=== PATIENT | male | born 1980 | race African-American/Black ===

== ENCOUNTER 2017-01-13 21:23 | Emergency (ER) | payer SELFPAY ==
[~2017-01-13] VITALS: Ht 170.2 cm; Wt 90.7 kg
[~2017-01-13 21:23] MED LIST: FAMO-63 PO; ONDA4TAB10 SL
--- NOTE | 2017-01-13 22:19 | PHYS DOC ---
Past Medical History Past Medical History: No Pertinent History, Other Additional Past Medical Histor: STATES HAS LT INGUINAL HERNIA Past Surgical History: No Surgical History Alcohol Use: Rarely Drug Use: Marijuana Adult General Chief Complaint Chief Complaint: DIZZY/LIGHT HEADED HPI HPI He states he had flulike illness partially one week ago and states his symptoms improved but over the last several days he still remained somewhat dizzy and lightheaded when he stands. He denies any nausea or vomiting. He states he has a normal appetite and had meals today. He admits he may not be drinking as much fluids as he should. He denies any significant health problems. He denies any abdominal pain. He denies any fever or chills. He does state his children had a flulike illness and he believes he contracted it from them. Review of Systems Review of Systems Constitutional: Denies fever or chills [] Eyes: Denies change in visual acuity, redness, or eye pain [] HENT: Denies nasal congestion or sore throat [] Respiratory: Denies cough or shortness of breath [] Cardiovascular: No additional information not addressed in HPI [] GI: Denies abdominal pain, nausea, vomiting, bloody stools or diarrhea [] : Denies dysuria or hematuria [] Musculoskeletal: Denies back pain or joint pain [] Integument: Denies rash or skin lesions [] Neurologic: Denies headache, focal weakness or sensory changes [] Endocrine: Denies polyuria or polydipsia [] Current Medications Current Medications Current Medications Medications (Trade) Dose Ordered Sig/[facility] Start Time Stop Time Status Last Admin Dose Admin Meclizine HCl (Antivert) 50 mg 1X ONCE 01/13/17 22:30 01/13/17 22:31 DC 01/13/17 22:23 50 MG Ondansetron HCl (Zofran Odt) 4 mg 1X ONCE 01/13/17 22:30 01/13/17 22:31 DC 01/13/17 22:23 4 MG Allergies Allergies Allergies Coded Allergies Type Severity Reaction Last Updated Verified No Known Drug Allergies 09/01/14 No Physical Exam Physical Exam Constitutional: Well developed, well nourished, no acute distress, non-toxic appearance. [] HENT: Normocephalic, atraumatic, bilateral external ears normal, oropharynx moist, no oral exudates, nose normal. [] Eyes: PERRLA, EOMI, conjunctiva normal, no discharge. [] Neck: Normal range of motion, no tenderness, supple, no stridor. [] Cardiovascular:Heart rate regular rhythm, no murmur [] Lungs & Thorax: Bilateral breath sounds clear to auscultation [] Abdomen: Bowel sounds normal, soft, no tenderness, no masses, no pulsatile masses. [] Skin: Warm, dry, no erythema, no rash. [] Back: No tenderness, no CVA tenderness. [] Extremities: No tenderness, no cyanosis, no clubbing, ROM intact, no edema. [] Neurologic: Alert and oriented X 3, normal motor function, normal sensory function, no focal deficits noted. [] Psychologic: Affect normal, judgement normal, mood normal. [] Current Patient Data Vital Signs Vital Signs Date Time Temp Pulse Resp B/P Pulse Ox O2 Delivery O2 Flow Rate FiO2 01/13/17 22:30 58 20 119/77 98 Room Air 01/13/17 21:36 98.1 98.1 Lab Values Laboratory Tests Test 01/13/17 21:47 Glucose (Fingerstick) 164mg/dL (70-99) H EKG EKG EKG as interpreted by me shows sinus bradycardia with rate of 52 bpm. QTc interval is 454 ms. There are no acute signs of ischemia. Radiology/Procedures Radiology/Procedures [] Course & Med Decision Making Course & Med Decision Making Pertinent Labs and Imaging studies reviewed. (See chart for details) This 28-year-old male with history of recent flulike illness and some mild dizziness and lightheadedness when he stands be given a dose of Zofran and meclizine. His orthostatics were normal. I do not see an indication to perform any IV or lab work at this time. His blood sugar checked at bedside was unremarkable. Patient was given a dose of Zofran and meclizine and upon my reassessment feels much improved. There is no indication at this time to perform any laboratory work or IV. I counseled patient length that he is to remain well-hydrated at home to take Zofran as needed for any nausea most follow closely with his primary care doctor in the next several days for symptom resolution. Patient is very agreeable with this plan and will be discharged without incident. Dragon Disclaimer Dragon Disclaimer This electronic medical record was generated, in whole or in part, using a voice recognition dictation system. Departure Departure Impression: Primary Impression: Lightheadedness Disposition: 01 HOME, SELF-CARE Condition: STABLE Referrals: NO PCP (PCP) Patient Instructions: Dehydration, Adult, [id number] Additional Instructions: Please continue to drink plenty of fluids and rest for the next several days. Follow up with your primary care doctor in the next several days. Return to the ER if you develop any worsening of your symptoms. Take zofran as needed for any nausea. Return to the ER if you develop any worsening of your symptoms. Scripts Ondansetron Hcl (Zofran)4 Mg Tablet4 Mg PO BID PRN NAUSEA/VOMITING #10 TAB Prov:EROS MELO DO 01/13/17 EROS MELO DO Jan 13, 2017 22:18
[2017-01-13 22:30] VITALS: BP 119/77
[2017-01-13] MEDS ORDERED: MECLIZINE HCL 12.5 MG TABLET. PO ONE (22:30)
[2017-01-13] MEDS ORDERED: ONDANSETRON ODT 4 MG TAB.RAPDIS PO ONE (22:30)
[2017-01-13] MEDS ORDERED: ONDA4TAB7 PO (22:52)
--- NOTE | 2017-01-14 07:29 | EKG ---
[facility] [address] [place] [id number] Test Date: 2017-01-13 Test Time: 21:48:11 Pat Name: MALCOLM SILVERIO Department: Room: Gender: M Custodial Engineer: : 1980 Requested By: EROS MELO Order Number: [id number] Reading MD: Dione Carl Measurements Intervals [place] Rate: 52 P: -36 NM: 126 QRS: 66 QRSD: 92 T: 27 QT: 486 QTc: 454 Interpretive Statements SINUS RHYTHM NORMAL ECG Electronically Signed On 01-17-2017 19:58:38 [employer] P[employer]ER by Dione Carl
== END 2017-01-13 22:56 | disposition home or self-care (01) ==
LOC: ER 21:23
DX: R42 Dizziness and giddiness (principal); F12.10 Cannabis abuse, uncomplicated
CPT/HCPCS: 82947; 93005; 99283; J8597; Q0162